=== PATIENT | male | born 1950 | race Caucasian/White ===

== ENCOUNTER → 2016-04-12 | Outpatient (CLI) | payer OTHER, MEDICARE | LOC: CIMAGING 14:55 | PROVIDERS: ATTEND Family Medicine | DX: R22.0 Localized swelling, mass and lump, head (principal) | CPT/HCPCS: 70250-PO ==

== ENCOUNTER → 2016-05-09 | Outpatient (CLI) | payer OTHER, MEDICARE | LOC: BRMIMAGING 12:54 | PROVIDERS: ATTEND Family Medicine | DX: R22.0 Localized swelling, mass and lump, head (principal) ==

== ENCOUNTER 2016-07-03 13:20 | Emergency (ER) | payer OTHER, MEDICARE | END 2016-07-03 13:25 | disposition left against medical advice (07) | LOC: CED 13:20 | DX: Z53.21 Procedure and treatment not carried out due to patient leaving prior to being seen by health care provider (principal) ==

== ENCOUNTER 2016-08-14 15:49 | Emergency (ER) | payer OTHER, MEDICARE ==
[2016-08-14 15:57] VITALS: RESP 18; O2SAT 96
--- NOTE | 2016-08-14 16:09 | EDPHY ---
H & P Time Seen by Provider: 08/14/16 15:57 HPI/ROS: Patient complains of left ear pressure that is moderate to severe at times over the past week associated with diminished hearing-"about half of what it normally is" per the patient. He has no other associated symptoms. He does not recall having this in the past. He has no other associated symptoms. No exacerbating factors. He has not tried any pain medications prior to arrival. ROS: No fevers chills or other constitutional symptoms HEENT: No nasal congestion. Denies any recent seasonal allergies. No drainage from the ear Pulmonary: No cough Neuro: No headache. No numbness tingling weakness or confusion. 5 point ROS is otherwise negative. Past Medical/Surgical History: Otherwise healthy Smoking Status: Former smoker Physical Exam: Physical Exam Vital signs are normal. General: No acute distress HEENT: Nose: Clear bilaterally. No sinus tenderness to percussion. Ears: Right external canal and TM are clear left ear: External canal clear there is appearance of slight bulge to the TM with clear effusion. Although there is no clear air-fluid level. There is no erythema. No masses are appreciated. There is no cerumen. No external canal inflammation or exudate. With a tuning fork the patient has diminished air conductive hearing on the left. He also reports diminished hearing on the left side when the tuning force applied to the mastoid left versus right. Tuning fork consent was 40 still feel hears the due for more than right ear. Oropharynx: No erythema or exudates. No dysphonia. No drooling or stridor. Eyes: Pupils equal and react to light. Extraocular motions are intact. Neck: Supple with no meningismus. No lymphadenopathy Lungs: Clear to auscultation bilaterally with no rales, rhonchi or wheeze. No respiratory distress. Cardiac: Regular rate and rhythm with no murmur gallop or rub Skin: No rash or pallor. Neuro: Alert with no focal deficits noted. Initial differential diagnosis: Serous otitis, acoustic neuroma, other inner ear lesion. Constitutional: Initial Vital Signs Temperature (C) 36.6 C 08/14/16 15:56 Heart Rate 61 08/14/16 15:56 Respiratory Rate 18 08/14/16 15:56 Blood Pressure 113/70 08/14/16 15:56 O2 Sat (%) 96 08/14/16 15:56 O2 Delivery Mode Room Air Allergies/Adverse Reactions: No Known Allergies Allergy (Unverified 08/14/16 15:55) Home Medications: Medication Instructions Recorded Fluticasone Nasal [Flonase Nasal 2 sprays NASAL DAILY #1 mdi 08/14/16 [place] (RX)] MDM/Departure - [facility] ED Course/Re-evaluation: Discussion: Patient with evidence of a small ear effusion but more hearing loss not expect from this alone. I explained the need to follow up with her nose throat physician if he does not achieve normal hearing with plan of Flonase and ibuprofen to help resolve any serous otitis. - Depart Clinical Impression: Serous otitis media Qualifiers: Chronicity: acute Laterality: left Recurrence: not specified as recurrent Qualified Code(s): H65.02 - Acute serous otitis media, left ear Condition: Good Instructions: Hearing Loss (ED), Serous Otitis Media (ED) Additional Instructions: Diagnoses: 1. Serous otitis 2. Hearing loss Plan: Flonase steroid nasal spray Ibuprofen or Aleve in addition to diminish swelling in attempt to drain or inner ear. You should have improvement and normalization of her hearing within 3-7 days this treatment plan. If you do not, it is important follow up with Dr. Marvin- your nose throat specialist for further evaluation of her ear. Return for any significant worsening despite the treatment plan Prescriptions: Fluticasone Nasal [Flonase Nasal [place] (RX)] 2 sprays NASAL DAILY #1 mdi Referrals: Daniel Doyle MD [Primary Care Provider] - As per Instructions Huber Marvin MD [Medical Doctor] - As per Instructions
[2016-08-14 16:19] VITALS: BP 117/67; PULSE 87; TEMP 98.1
== END 2016-08-14 16:19 | disposition home or self-care (01) ==
LOC: CED 15:49
DX: H65.02 Acute serous otitis media, left ear (principal); Z87.891 Personal history of nicotine dependence